=== PATIENT | male | born 1970 | race African-American/Black ===

== ENCOUNTER 2016-07-25 09:30 | Emergency (ER) | payer SELFPAY ==
[2016-07-25] MEDS ORDERED: Nitroglycerin 0.4 MG TAB (25 Tab Bottle) ONE (10:12)
--- NOTE | 2016-07-25 10:29 | RAD ---
PORTABLE AP CHEST XRAY: DATE: 07/25/16. HISTORY: Chest pain. COMPARISON: 02/26/11. FINDINGS: The cardiac silhouette is magnified by projection. Pulmonary vasculature is within normal limits. The lungs are clear. There has been no interval change from the prior exam. IMPRESSION: No acute cardiopulmonary process. POS: [facility]
[2016-07-25 10:39] LABS: #Basophils 0.1 thou/uL (0.0-0.2); #Eosinphils 0.2 thou/uL (0.0-0.7); #Lymphocytes 0.8 thou/uL (1.20-3.40); #Monocytes 0.4 thou/uL (0.11-0.59); #Neutrophils 2.5 thou/uL (1.40-6.50); %Basophils 1.7 % (0.0-1.0); %Eosinophils 5.6 % (0.0-10.0); %Lymphocytes 20.2 % (21.0-51.0); %Monocytes 11.1 % (0.0-10.0); %Neutrophils 61.4 % (42.0-75.0); Hemoglobin 14.1 g/dL (14.0-18.0); Mean Corpuscular HGB CONC 31.8 g/dL (32.0-36.0); Mean Corpuscular Hemoglobin 27.6 pg (27.0-31.0); Mean Corpuscular Volume 86.9 fl (80.0-94.0); Mean Platelet Volume 8.3 fL (7.4-10.4); Platelet Count 242 thou/uL (130-400); RBC Distribution Width 13.8 % (11.5-14.5)
[2016-07-25 10:48] LABS: CKMB 0.9 ng/mL (0-6.6); Troponin I Less than 0.010 ng/mL (< 0.028)
[2016-07-25 10:52] LABS: ALT (SGPT) 28 U/L (8-55); AST (SGOT) 13 U/L (5-34); Albumin 3.9 g/dL (3.5-5.0); Alkaline Phosphatase 94 U/L (40-150); Anion Gap 15 mmol/L (10-20); BUN (Urea Nitrogen) 17 mg/dL (8.9-20.6); Bilirubin, Total 0.3 mg/dL (0.2-1.2); CK (CPK) 124 U/L (30-200); Calc. Creatinine Clearance 0 mL/min (70-130); Calcium 9.2 mg/dL (7.8-10.44); Carbon Dioxide 21 mmol/L (22-29); Chloride 108 mmol/L (98-107); Estimated GFR-MDRD Greater than 90; Globulin 4.2 g/dL (2.4-3.5); Glucose 257 mg/dL (70-105); Lipase 14 U/L (8-78); Potassium 4.4 mmol/L (3.5-5.1); Protein, Total 8.1 g/dL (6.0-8.3); Sodium 140 mmol/L (136-145)
[2016-07-25] MEDS ORDERED: Metoprolol Tartrate 5 MG/5 ML VIAL ONE (10:52)
== END 2016-07-25 11:27 | disposition home or self-care (01) ==
LOC: NAV ERS 09:30
DX: R07.9 Chest pain, unspecified (principal); I10 Essential (primary) hypertension; E11.65 Type 2 diabetes mellitus with hyperglycemia
CPT/HCPCS: 36415; 71010; 80053; 82150; 82550; 82553; 83690; 84484; 85025; 93005; 96374

== ENCOUNTER 2018-08-07 02:22 | Emergency (ER) | payer SELFPAY ==
[2018-08-07] MEDS ORDERED: cloNIDine 0.2 MG TAB ONE (02:54)
[2018-08-07] MEDS ORDERED: Ketorolac Tromethamine 60 MG/2 ML VIAL ONE (02:54)
== END 2018-08-07 03:45 | disposition home or self-care (01) ==
LOC: NAV ERS 02:22
DX: K02.9 Dental caries, unspecified (principal); I10 Essential (primary) hypertension
CPT/HCPCS: 96372; J1885

== ENCOUNTER 2018-09-17 12:57 | Emergency (ER) | payer SELFPAY ==
[2018-09-17] MEDS ORDERED: Silver Sulfadiazine 1% Cream 50 GM JAR ONE (13:43)
[2018-09-17] MEDS ORDERED: Adacel (T-DAP) 0.5 ML SYRINGE ONE (13:55)
== END 2018-09-17 14:19 | disposition home or self-care (01) ==
LOC: NAV ERS 12:57
DX: T24.532A Corrosion of first degree of left lower leg, initial encounter (principal); I10 Essential (primary) hypertension
CPT/HCPCS: 16000; 90471; 90715

== ENCOUNTER 2018-10-26 05:23 | Emergency (ER) | payer SELFPAY ==
[2018-10-26] MEDS ORDERED: cloNIDine 0.2 MG TAB ONE (05:44)
[2018-10-26] MEDS ORDERED: Ketorolac Tromethamine 60 MG/2 ML VIAL ONE (05:47)
[2018-10-26] MEDS ORDERED: AMOXicillin 250 MG CAP ONE (06:49)
== END 2018-10-26 07:01 | disposition home or self-care (01) ==
LOC: NAV ERS 05:23
DX: K02.9 Dental caries, unspecified (principal); I10 Essential (primary) hypertension
CPT/HCPCS: 96372; 99282; J1885

== ENCOUNTER 2018-10-28 01:40 | Emergency (ER) | payer SELFPAY ==
[2018-10-28] MEDS ORDERED: Ketorolac Tromethamine 60 MG/2 ML VIAL ONE (01:57)
== END 2018-10-28 02:18 | disposition home or self-care (01) ==
LOC: NAV ERS 01:40
DX: K08.89 Other specified disorders of teeth and supporting structures (principal); I10 Essential (primary) hypertension; Z79.899 Other long term (current) drug therapy
CPT/HCPCS: 96372; 99282; J1885